=== PATIENT | female | born 1985 | race Caucasian/White ===

== ENCOUNTER 2017-09-16 21:02 | Emergency (ER) | payer BC, OTHER, SELFPAY ==
[2017-09-16] MEDS ORDERED: Metoclopramide HCl 10 MG/2 ML VIAL ONE (22:36)
== END 2017-09-16 23:54 | disposition home or self-care (01) ==
LOC: ERS 21:02
DX: R51 Headache (principal); R19.7 Diarrhea, unspecified; R11.0 Nausea; G40.909 Epilepsy, unspecified, not intractable, without status epilepticus
CPT/HCPCS: 96361; 96374; J2765

== ENCOUNTER 2018-07-26 10:18 | Emergency (ER) | payer BC, OTHER ==
[2018-07-26 11:14] LABS: Hemoglobin 12.4 g/dL (12.0-16.0); Mean Corpuscular HGB CONC 33.8 g/dL (32.0-36.0); Mean Corpuscular Volume 88.7 fL (78.0-98.0); Mean Platelet Volume 8.3 fL (7.4-10.4); Platelet Count 192 thou/uL (130-400); RBC Distribution Width 12.8 % (11.5-14.5); Red Blood Cell (RBC) Count 4.12 mill/uL (4.20-5.40); White Blood Cell (WBC) Count 5.7 thou/uL (4.8-10.8)
[2018-07-26 11:15] LABS: Bilirubin Negative (Negative); Blood, Urine Moderate (Negative); Clarity CLOUDY (Clear); Glucose, Urine (Dipstick) Negative (Negative); Leukocyte Negative (Negative); Nitrite Negative (Negative); Protein, Urine (Dipstick) Negative (Neg-Trace); Specific Gravity, Urine 1.026 (1.002-1.036); Urobilinogen 0.2 mg/dL (0.2-1.0)
[2018-07-26 11:16] LABS: Bacteria/HPF Rare-Few HPF (None Seen)
[2018-07-26 11:18] LABS: Pathc Cast-AUWi Flag 4.35 (0-2.49)
[2018-07-26 11:29] LABS: Hyaline Casts/LPF 0-3 HYALINE CAST LPF (0-3 Hyaline); Other Casts/LPF None Seen LPF (0-3 Hyaline)
[2018-07-26 11:34] LABS: Band 3 % (5-11); Lymphocytes 4 % (21-51); MDiff Complete? YES; Monocytes 2 % (0-10); Neutrophil 89 % (42-75); Platelet Morphology Comment Appears Adequate; Reactive Lymphocytes 2 % (0-10)
[2018-07-26 11:35] LABS: ALT (SGPT) 10 U/L (8-55); AST (SGOT) 15 U/L (5-34); Albumin 3.4 g/dL (3.5-5.0); Alkaline Phosphatase 55 U/L (40-150); Anion Gap 11 mmol/L (10-20); BUN (Urea Nitrogen) 10 mg/dL (7.0-18.7); Bilirubin, Total 0.5 mg/dL (0.2-1.2); Calc. Creatinine Clearance 0 mL/min (70-130); Calcium 8.8 mg/dL (7.8-10.44); Carbon Dioxide 23 mmol/L (22-29); Chloride 103 mmol/L (98-107); Estimated GFR-MDRD Greater than 90; Globulin 2.9 g/dL (2.4-3.5); Glucose 87 mg/dL (70-105); Lipase 14 U/L (8-78); Potassium 4.1 mmol/L (3.5-5.1); Protein, Total 6.3 g/dL (6.0-8.3); Sodium 133 mmol/L (136-145)
--- NOTE | 2018-07-26 12:12 | ULT ---
LIMITED OB ULTRASOUND: HISTORY: Abdominal pain. FINDINGS: A single live intrauterine gestation is seen with measurements corresponding to an estimated gestatio nal age of 20 weeks 3 days and MARTINEZ at 12/10/2018. The estimated weight measures 369 gm or 13 o unces. measurements are as follows: BPD 4.60 cm, 19 weeks 6 days HC 17.54 cm, 20 weeks 0 days AC 14.43 cm, 20 weeks 4 days FL 3.47 cm, 21 weeks 0 days The heart rate measures 163 b.p.m. The SUNSHINE measures 11.2 cm. Placenta is posteriorly located without evidence of placenta previa. IMPRESSION: Single live intrauterine of 20 weeks 3 days estimated gestational age and estimated date of delivery at 12/10/2018. POS: JUAN
== END 2018-07-26 13:11 | disposition home or self-care (01) ==
LOC: ERS 10:18
DX: O99.89 Other specified diseases and conditions complicating pregnancy, childbirth and the puerperium (principal); R10.9 Unspecified abdominal pain; Z3A.19 19 weeks gestation of pregnancy
CPT/HCPCS: 36415; 76815; 80053; 81003; 81015; 83690; 84702; 85025; 87086; 96372; J0500

== ENCOUNTER 2018-12-09 05:25 | Inpatient (IN) | payer OTHER ==
[2018-12-09] MEDS ORDERED: Promethazine HCl 25 MG/ML VIAL IM PRN ×3 (05:44→12:05)
[2018-12-09] MEDS ORDERED: hydrALAZINE 20 MG/ML VIAL SLOW IVP PRN ×2 (05:44→12:05)
[2018-12-09] MEDS ORDERED: Bicitra 30 ML UDCUP PO SCH (05:44)
[2018-12-09] MEDS ORDERED: CEFAZOLIN 2 GM in Premix Bag 1 BAG IVPB SCH (05:44)
[2018-12-09] MEDS ORDERED: Ondansetron PF 4 MG/2 ML Vial IVP PRN ×3 (05:44→12:05)
[2018-12-09 06:00] VITALS: BMI 28.3
[2018-12-09 06:19] LABS: Hemoglobin 10.6 g/dL (12.0-16.0); Mean Corpuscular HGB CONC 34.5 g/dL (32.0-36.0); Mean Corpuscular Hemoglobin 28.6 pg (27.0-31.0); Mean Corpuscular Volume 82.8 fL (78.0-98.0); Mean Platelet Volume 8.8 fL (7.4-10.4); Platelet Count 191 thou/uL (130-400); RBC Distribution Width 14.6 % (11.5-14.5); Red Blood Cell (RBC) Count 3.72 mill/uL (4.20-5.40); White Blood Cell (WBC) Count 6.2 thou/uL (4.8-10.8)
--- NOTE | 2018-12-09 06:50 | PDOC.FPROB ---
FMR OB H&P: HPI - History of Present Illness Chief Complaint: scheduled rLTCS Indentification: 33 y/o @ 39.2 WGA by LMP/8.1 wk sono History of Present Illness: Patient presents for a scheduled repeat section. She denies any complaints this AM. Reports few ronald fu ctx, no vaginal bleeding, vaginal d/c, LOF. Endorses movement. Primary Care Physician: Dr. Ford - [facility] FMR OB H&P: Current - Care : 2 Para: 1001 Gestational age: 39w2d Due date: 12/14/18 Dating Criteria: LMP/8.1 wk sono - OB Labs Blood type: O RH: positive Antibody Screen: negative HIV: negative RPR: negative HepBsAg: negative Rubella: immune Quad screen: negative Gonorrhea: negative Chlamydia: negative 1 hour gtt: 109 A1c: 4.9 GBS: negative - Anatomy Survey Anatomy survey: Normal - Additional Ultrasound Additional: Growth US 79.5% @ 36.1 WGA FMR OB H&P: History - Past Medical History PMH: Epilepsy, last seizure > 20 yrs ago Celiac disease Migraines MDD - OB History OB History: 07/01/16: LTCS 2/2 failed IOL 2/2 CPD. Male - 9lb 3oz. 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 Denies any h/o abnormal paps or STI's - Surgical History Sx History: LTCS - 07/01/16 at [facility] - Social History Social History: with 1 child. Denies tobacco, EtOH, or drug use - Family History Family History: Denies FMR OB H&P: Medications - Current Home Medications: Medication Instructions Recorded Confirmed Type No122/Iron/Folic Acid 1 each PO DAILY 12/09/18 12/11/18 History [ Multi Tablet] Docusate Calcium [Surfak] 240 mg PO BID #60 cap 12/11/18 Rx Ferrous Sulfate [Feosol] 325 mg PO QAM-WM #30 tab 12/11/18 Rx Ibuprofen [Motrin] 800 mg PO Q8HR #60 tab 12/11/18 Rx Allergies/Adverse Reactions: Allergies Allergy/AdvReac Type Severity Reaction Status Date / Time gluten Allergy Mild Diarrhea Verified 12/09/18 05:55 FMR OB H&P: ROS - Review of Systems General: denies: fever/chills, weight/appetite/sleep changes Eyes: denies: vision changes, double vision, scotomas ENT: denies: nasal congestion, sore throat Cardiovascular: denies: chest pain, edema Respiratory: denies: cough, shortness of breath Gastrointestinal: denies: abdominal pain, nausea, vomiting Genitourinary (Female): denies: dysuria, hematuria Musculoskeletal: denies: pain, tenderness Neurologic: denies: numbness, seizures, weakness Integumentary: denies: itching, rash Breast: denies: lumps, bumps Hematologic/Lymphatic: denies: prolonged or excessive bleeding, enlarged lymph nodes FMR OB H&P: Vital Signs - Maternal Vital signs: BP 98/58, HR 81, RR 16, Temp 98.4, O2 sat 98% on RA - Heart Tones Baseline: 135 Variability: moderate Acceleration: absent Deceleration: absent Category: category 1 [place] contractions every: none FMR OB H&P: Physical Exam - Physical Exam General: NAD, awake, alert and oriented HEENT: MMM, conjunctiva clear, grossly normal vision, grossly normal hearing Neck: supple, no LAD Heart: RRR, normal S1/S2, no murmurs/rubs/gallops, pulses present, no edema General: CTAB, no respiratory distress, good air movement, no rales/rhonchi, no wheezing Abdomen: soft, gravid, non-tender Musculoskeletal: normal gait and station, pulses present Skin: good tugor, capillary refill <2 seconds Lymphatic: no unusual bruising or bleeding, no purpura Psychiatric: intact recent and remote memory, good judgement and insight - Pelvic Exam Presentation: cephalic on bedside sono with post placenta FMR OB H&P: Results - Labs Lab results: Laboratory Results - last 24 hr 12/09/18 06:06 WBC 6.2 RBC 3.72 L Hgb 10.6 L Hct 30.8 L MCV 82.8 MCH 28.6 MCHC 34.5 RDW 14.6 H Plt Count 191 MPV 8.8 FMR OB H&P: A/P - Problem List (1) H/O section Current Visit: Yes Status: Acute Code(s): Z98.891 - HISTORY OF UTERINE SCAR FROM PREVIOUS SURGERY Assessment and Plan: Plan for repeat -Admit to L&D -LR @ 125 -Ancef 2g -Consult anesthesia -NPO (2) Term Current Visit: No Status: Acute Code(s): Z34.80 - ENCOUNTER FOR SUPRVSN OF NORMAL , UNSP TRIMESTER Assessment and Plan: Plan as above (3) Celiac disease Current Visit: No Status: Chronic Code(s): K90.0 - CELIAC DISEASE Assessment and Plan: Stable (4) Epilepsy complicating in third trimester Current Visit: No Status: Chronic Code(s): O99.353 - DISEASES OF THE NERVOUS SYS COMP , THIRD TRIMESTER; G40.909 - EPILEPSY, UNSP, NOT INTRACTABLE, WITHOUT STATUS EPILEPTICUS Assessment and Plan: Seizure free for several years, off meds at this time Disposition: Admit to L&D Discussion: Date/Time: 12/09/18 0648 This H&P was discussed with Dr. Ford who agrees with the above documentation and plan. Signature: Daylin Marsh MD, PGY-3 Addendum - Attending - Attending Attestation Date/Time: 12/09/18 0785 I personally evaluated the patient and discussed the management with Dr. Marsh I agree with the History, Examination, Assessment and Plan documented above with any addition or exceptions noted below. 33 yo female at 39.2 wks here for scheduled repeat LTCS per maternal request. R/B/A discussed. Patient did not wish to have TOLAC due to severity and complications of last labor process. Currently no other complications this . Patient does have a history of celiac dz and childhood seizures with last seizure over 20 years ago. Patient has been off medication for several years. Celiac dz well controlled with diet. Anemia currently related to . Will proceed to OR when available. Fetus cephalic. Gloria
[2018-12-09 06:57] LABS: HBSAg Index 0.21 S/CO (0-0.99); Hep B Surf Ag Non-Reactive S/CO (NonReactive); Syphilis Antibody Nonreactive (Nonreactive); Syphilis Antibody Index 0.05 S/CO (<1.00 Non-Reactive)
[2018-12-09] MEDS ORDERED: Oxytocin 10 UNITS/ML VIAL ONE ×2 (07:07→07:09)
[2018-12-09] MEDS ORDERED: ePHEDrine/0.9% NaCl/PF SYRINGE 50 mg/10 ml ONE (07:07)
[2018-12-09] MEDS ORDERED: Ondansetron PF 4 MG/2 ML Vial ONE ×2 (07:07→12:00)
[2018-12-09] MEDS ORDERED: MORPHINE 5 MG/10 ML PF VIAL ONE (07:09)
[2018-12-09] MEDS: Lactated Ringer's 1,000 ML IV SCH ×4 (07:14→15:47)
[2018-12-09] MEDS ORDERED: PHENYLEPHRINE-NS 100 MCG/ML 10 ML SYRINGE ONE ×2 (07:43→12:00)
[2018-12-09] MEDS ORDERED: NS / Oxytocin 40 units/1000ml 0 ML ONE (08:01)
[2018-12-09] MEDS ORDERED: Ketorolac Tromethamine 30 MG/ML VIAL ONE ×2 (08:19→12:00)
--- NOTE | 2018-12-09 08:58 | PDOC.OPDEL ---
OB Operative/Delivery Note Delivery Dr/Surgeon: Dr. Marsh and Dr. Gutierrez with Dr. Ford attending Pre-Delivery Diagnosis: scheduled section Procedure/Post Delivery Dx: repeat low transverse CS Weeks gestation: 39 (39w2d) Anesthesia: spinal - Findings A Sex: female - Additional Findings/Plan Placenta delivered: spontaneous findings: low transverse hysterotomy without extension Estimated blood loss: 750 mL Compilations/Other Findings: Preoperative Diagnosis: 1) Curry, Term intrauterine 2) Previous x1 3) Celiac disease 4) Childhood seizure disorder, resolved 5) hx of adjustment disorder with depressed and anxious mood 6) Anemia of Postoperative Diagnosis: Same Anesthesia: spinal Indications: The patient is a 33 year old female at 39.2 weeks gestation (by LMP/8.1 wk sono) who presents for a repeat scheduled . Procedure in Detail: After risks, benefits, and alternatives were explained to the patient, she gave informed consent. Pre-operative antibiotics included Cefazolin 2 gram IV. The patient was taken to the operating room and spinal anesthesia was initiated. She was placed in the supine position with a left tilt and prepped and draped in usual sterile fashion. A Pfannenstiel incision was made with a scalpel and carried down to the level of the fascia which was sharply nicked. The fascial cut was extended bilaterally with Sanchez scissors. The inferior and superior edges of the cut fascial edges were elevated with Daphne clamps and the underlying rectus muscles were sharply and bluntly dissected free. The recti were divided digitally and retracted manually. The peritoneum was entered bluntly and retracted manually. Mustapha O retractor was placed. Bladder flap was created with Metzenbaum scissors due to the high scarring displacement of the bladder. A low transverse score was made with the scalpel and the uterus was entered in the midline bluntly. Clear fluid was seen. The hysterotomy was extended manually in a cephalocaudal fashion. The infant was noted to be vertex and was easily delivered by fundal pressure. Mouth and nares were bulb suctioned. Cord clamped and cut and grossly normal female infant was handed to waiting nurse. Cord blood was obtained. Placenta was manually extracted, found to be intact with 3 vessel cord and discarded. The endometrium was curetted with a dry lap. The uterus was closed with a running locking #1 Monocryl followed by a running non-locking #1 Monocryl imbricating suture. Following this hemostasis was noted. The abdomen was inspected and suctioned free of clots. The Mustapha O retractor was removed and the hysterotomy was again noted to be hemostatic. The peritoneum was closed with running, non-locking 2-0 vicryl suture. The fascia was closed with a running non-locking 0-PDS suture. The subcutaneous tissue was irrigated and the bleeders were cauterized with the bovie. The subcutaneous layer was approximated with interrupted 4-0 PlainGut sutures. The skin was closed with running subcuticular 4-0 monocryl suture and a pressure dressing was placed. All counts were correct. The patient tolerated the procedure well and was taken to the recovery room in stable condition. Delivery Time: 0758 on 12/09/18 Estimated Blood Loss: 750 ml, Quantitative Blood loss: 425mL Complications: None Specimens: Cord blood sent to lab for blood type Findings: Grossly normal female infant went to nursery in good condition. Grossly normal placenta with 3 vessel cord discarded. Drains: Moran to gravity draining clear urine Attending Note: I was present and participated in the above documented procedure. RLTCS was uncomplicated. Hysterotomy was closed in 2 layers. Hemostasis was noted at the end of the case. Count was correct x 3. Female fetus delivered in OP positioning. APGARs 8/9. Weighing 7 lbs 8 oz. Placenta was intact with 3VC. Discarded. IVF = 1600 mL of LR UOP = 800 mL, clear Dispo: Routine recovery ABrayMD Post delivery plan: routine recovery
[2018-12-09] MEDS ORDERED: Naloxone HCl 0.4 mg/ml Vial IV PRN (09:10)
[2018-12-09] MEDS ORDERED: Naloxone HCl 0.4 mg/ml Vial IVP PRN ×2 (09:10)
[2018-12-09] MEDS ORDERED: Ondansetron HCl/PF 4 MG/2 ML Vial IVP PRN (09:10)
[2018-12-09] MEDS ORDERED: Promethazine HCl 25 MG SUPP PR PRN (09:10)
[2018-12-09] MEDS ORDERED: diphenhydrAMINE 50 MG/ML VIAL IVP PRN (09:10)
[2018-12-09] MEDS ORDERED: Meperidine HCl/PF 25 MG/ML VIAL SLOW IVP PRN (09:10)
[2018-12-09] MEDS ORDERED: L&D-Morphine 4 MG/ML VIAL SLOW IVP PRN (09:10)
[2018-12-09] MEDS ORDERED: Ketorolac Tromethamine 30 MG/ML VIAL IVP PRN ×2 (09:10→12:05)
[2018-12-09] MEDS ORDERED: HYDROmorphone 2 MG/ML VIAL SLOW IVP PRN (09:10)
[2018-12-09] MEDS ORDERED: Communication Order-Pharmacy FS SCH (09:15)
[2018-12-09] MEDS ORDERED: Ketorolac Tromethamine 30 MG/ML VIAL IVP SCH (09:15)
[2018-12-09] MEDS ORDERED: Promethazine HCl 25 MG/ML VIAL ONE (10:38)
[2018-12-09] MEDS ORDERED: ePHEDrine 50 MG/ML VIAL ONE (12:00)
[2018-12-09] MEDS ORDERED: Zolpidem Tartrate 5 MG TAB PO PRN (12:05)
[2018-12-09] MEDS ORDERED: Bisacodyl 10 MG SUPP PR PRN (12:05)
[2018-12-09] MEDS ORDERED: diphenhydrAMINE 25 MG CAP PO PRN (12:05)
[2018-12-09] MEDS ORDERED: Acetaminophen 325 MG TAB PO PRN (12:05)
[2018-12-09] MEDS ORDERED: Simethicone Chewable 80 MG TAB PO PRN (12:05)
[2018-12-09] MEDS ORDERED: Methylergonovine 0.2 MG/ML VIAL IM PRN (12:05)
[2018-12-09] MEDS ORDERED: Misoprostol 200 MCG TAB PR PRN (12:05)
[2018-12-09] MEDS ORDERED: HYDROcodone/Acetaminophen 5/325 mg Tablet PO PRN ×2 (12:05)
[2018-12-09] MEDS: Ibuprofen 800 MG TAB PO SCH ×2 (14:44→22:10)
--- NOTE | 2018-12-09 18:29 | PDOC.EVN ---
Event Note - Event Note Event Note: 12/09/2018 at 14:00 PP progress note. Patient doing well. She states she is tired. Lochia minimal. She is and has no concerns. VS: BP 88/46, Pulse 74, RR 18, Temp 97.7F, O2 sat 100% on RA General: Alert and oriented HEENT: MMM Card: RRR Resp: CTA, no acute respiratory distress Ext: No edema Abdomen: Soft, non-tender. Uterus firm and at level of umbilicus A/P: Routine PP care: Meeting milestones. ADAT (gluten free). Continue . Encouraged ambulation when able. Abdominal binder available. Minimal lochia. Good urine output. s/p rLTCS: No complications. QBL 425 mL. Epilepsy: Seizure free for >20 years. Not on medications. Adjustment disorder vs MDD: Patient will need to be monitored closely for PP depression. No signs at this time. She was in good spirits and very excited about the of her baby girl. Continue to monitor closely. GERD: H2 radha as needed. Celiac disease: Avoid gluten. Diet modification noted in chart. Ayana Gutierrez, DO PGY-3 Attending Note: Agree with above. Continue to monitor lochia and pain control. Will have patient follow up closely outpt due to hx of mood disorder. Gloria
[2018-12-09] MEDS: Docusate Calcium (SURFAK) 240 MG CAP PO SCH (22:15)
[2018-12-09] MEDS: Lanolin Ointment 7 GM TUBE TOP PRN (22:30)
[2018-12-10] MEDS: Ibuprofen 800 MG TAB PO SCH ×3 (06:19→21:27)
[2018-12-10 06:44] LABS: Hemoglobin 8.2 g/dL (12.0-16.0); Mean Corpuscular HGB CONC 33.4 g/dL (32.0-36.0); Mean Corpuscular Hemoglobin 28.7 pg (27.0-31.0); Mean Corpuscular Volume 85.7 fL (78.0-98.0); Mean Platelet Volume 8.3 fL (7.4-10.4); Platelet Count 157 thou/uL (130-400); RBC Distribution Width 14.5 % (11.5-14.5); Red Blood Cell (RBC) Count 2.86 mill/uL (4.20-5.40); White Blood Cell (WBC) Count 9.3 thou/uL (4.8-10.8)
--- NOTE | 2018-12-10 07:40 | PDOC.OBPPN ---
FMR OB PN: Subj - Interval History Hospital Day: 2 Day: 1 33 y/o ->2 @ 39.2 WGA delivered via rLTCS @ 0758 on 12/09/18. Breast feeding without difficulty. Reports some abdominal discomfort that has been improved with toradol. She reports lochia less than a period. She has been out of bed to the bathroom. She endorses flatus. Denies LE swelling, palpitations, H/A. Reports N/V has resolved since the recovery room. FMR OB PN: Obj - Maternal Vital signs: BP: 94/47 HR: 80 RR: 16 Tmax: 98.9 Pox: 98% on RA Wt: 70kg - Urine output I&O: 12/09/18 12/10/18 12/11/18 06:59 06:59 06:59 Intake Total 900 Output Total 3075 Balance -2175 FMR OB PN: Exam - Physical Exam General: NAD, awake, alert and oriented HEENT: MMM, conjunctiva clear, grossly normal vision, grossly normal hearing Neck: supple, no LAD Heart: RRR, normal S1/S2, pulses present, no edema, other (4/6 systolic murmur) General: CTAB, no respiratory distress, good air movement, no wheezing Abdomen: soft, fundus(cm) (firm below umbilicus), bowel sound present Musculoskeletal: pulses present, FROM in all four extremities Neurological: no clonus, no focal deficit Skin: good tugor, capillary refill <2 seconds : bandage intact, incision healing well Lymphatic: no unusual bruising or bleeding, no purpura Psychiatric: intact recent and remote memory, good judgement and insight FMR OB PN: Data - Labs Lab results: Laboratory Results - last 24 hr 12/10/18 06:27 WBC 9.3 RBC 2.86 L Hgb 8.2 L Hct 24.5 L MCV 85.7 MCH 28.7 MCHC 33.4 RDW 14.5 Plt Count 157 MPV 8.3 FMR OB PN: A/P - Problem List (1) Status post Current Visit: No Status: Acute Code(s): Z98.891 - HISTORY OF UTERINE SCAR FROM PREVIOUS SURGERY Assessment and Plan: pt POD #1 s/p rLTCS -Encourage ambulation -Abdominal binder -Encourage breast feeding -Continue PNV -ADAT -Toradol for pain control overnight, will transition to PO pain control with ibuprofen and norco but keep toradol prn today. -Needs pap (2) Celiac disease Current Visit: No Status: Chronic Code(s): K90.0 - CELIAC DISEASE Assessment and Plan: Stable -Avoid gluten (3) Epilepsy complicating in third trimester Current Visit: No Status: Chronic Code(s): O99.353 - DISEASES OF THE NERVOUS SYS COMP , THIRD TRIMESTER; G40.909 - EPILEPSY, UNSP, NOT INTRACTABLE, WITHOUT STATUS EPILEPTICUS Assessment and Plan: Stable, no recent seizures, not on medications (4) Anemia Current Visit: Yes Status: Acute Code(s): D64.9 - ANEMIA, UNSPECIFIED Assessment and Plan: Hb down from 10.6 to 8.2 post op -Will start iron -Continue PNV -Pt asymptomatic at this time Disposition: Continue to monitor on Discussion: Date/Time: 12/10/18 0738 This H&P was discussed with Dr. Ford who agrees with the above documentation and plan. Signature: Daylin Marsh MD, PGY-3 Addendum - Attending - Attending Attestation Date/Time: 12/10/18 0800 I personally evaluated the patient and discussed the management with Dr. Marsh I agree with the History, Examination, Assessment and Plan documented above with any addition or exceptions noted below. 33 yo now female s/p uncomplicated RLTCS on 12/09/18 POD/PPD #1 Patient doing well. Pain controlled. Lochia minimal. Would like to breast fed. VS reviewed. Labs reviewed. NAD, AAO x4 RRR, II/ systolic flow murmur, nonradiating. CTA bilaterally, No w/c/r NT/ND, BS present. Fundus firm, below umbilicus. Bandage intact and clean. FROM, no c/c/e 1. s/p RLTCS: Doing well. Continue routine pp care. Bandage off today. Encouraged ambulation. 2. Blood loss anemia: Bill BL = 1070 mL. Continue oral iron supp. Patient is asymptomatic. 3. Celiac dz: Diet controlled. 4. hx of adjustment disorder vs PPD with hx of MDD: Mood stable and good. No depressive symptoms reported by patient. Has more assistance to help with this than last. [id number] present in room. Patient very self-aware. Will follow up closely pp. 5. Contraception: Family planning. Gloria
[2018-12-10] MEDS: Ferrous Sulfate 325 MG TAB PO SCH (10:26)
[2018-12-10] MEDS: Prenatal Vitamin 1 TAB PO SCH (10:26)
[2018-12-10] MEDS: Docusate Calcium (SURFAK) 240 MG CAP PO SCH ×2 (10:27→21:27)
[2018-12-10] MEDS: Lanolin Ointment 7 GM TUBE TOP PRN (21:27)
[2018-12-10] MEDS ORDERED: Sodium Chloride 0.9% 0 ML ONE (23:53)
[2018-12-11] MEDS: Ibuprofen 800 MG TAB PO SCH ×2 (05:40→15:57)
[2018-12-11 07:51] VITALS: BP 101/55; TEMP 98.2
--- NOTE | 2018-12-11 09:27 | PDOC.OBPPN ---
FMR OB PN: Subj - Interval History Hospital Day: 3 Day: 2 33 y/o ->2 @ 39.2 WGA delivered via rLTCS @ 0758 on 12/09/18. Breast feeding without difficulty. Reports abdominal pain controlled with ibuprofen. She reports lochia less than a period. She has been out of bed to the bathroom and walked around the room. She endorses flatus. Denies LE swelling, palpitations, H/A, N/V. FMR OB PN: Obj - Maternal Vital signs: BP: 101/55 HR: 94 RR: 16 Tmax: 98.2 Pox: 99% on RA Wt: 70kg - Urine output I&O: 12/10/18 12/11/18 12/12/18 06:59 06:59 06:59 Intake Total 900 650 Output Total 3075 Balance -2175 650 FMR OB PN: Exam - Physical Exam General: NAD, awake, alert and oriented HEENT: MMM, conjunctiva clear, grossly normal vision, grossly normal hearing Neck: no LAD Heart: RRR, normal S1/S2, no murmurs/rubs/gallops, pulses present, no edema General: CTAB, no respiratory distress, good air movement, no rales/rhonchi, no wheezing Abdomen: soft, fundus(cm) (firm 2cm below umbilicus), bowel sound present Musculoskeletal: pulses present, FROM in all four extremities Neurological: no clonus, no focal deficit Skin: good tugor, capillary refill <2 seconds : incision healing well, no erythema, no edema, no drainage, appropriately tender Lymphatic: no unusual bruising or bleeding, no purpura FMR OB PN: A/P - Problem List (1) Status post Current Visit: No Status: Acute Code(s): Z98.891 - HISTORY OF UTERINE SCAR FROM PREVIOUS SURGERY Assessment and Plan: pt POD #2 s/p rLTCS -Encourage ambulation -Abdominal binder -Encourage breast feeding -Continue PNV -Ibuprofen for pain control, has norco prn, but has not been using it -Needs pap (2) Celiac disease Current Visit: No Status: Chronic Code(s): K90.0 - CELIAC DISEASE Assessment and Plan: Stable, avoid gluten (3) Epilepsy complicating in third trimester Current Visit: No Status: Chronic Code(s): O99.353 - DISEASES OF THE NERVOUS SYS COMP , THIRD TRIMESTER; G40.909 - EPILEPSY, UNSP, NOT INTRACTABLE, WITHOUT STATUS EPILEPTICUS Assessment and Plan: Not on medications, no seizures in last several years (4) Anemia Current Visit: Yes Status: Acute Code(s): D64.9 - ANEMIA, UNSPECIFIED Assessment and Plan: Continue iron and PNV Disposition: d/c this PM Discussion: Date/Time: 12/11/18 0952 This H&P was discussed with Dr. Ford who agrees with the above documentation and plan. Signature: Daylin Marsh MD, PGY-3 Addendum - Attending - Attending Attestation Date/Time: 12/11/18 1240 I personally evaluated the patient and discussed the management with Dr. Marsh I agree with the History, Examination, Assessment and Plan documented above with any addition or exceptions noted below. 33 yo now female s/p uncomplicated RLTCS on 12/09/18 at 0758 POD/PPD #2 Remains well. Pain well controlled. Some trouble with breast feeding. not available yesterday. Suppose to stop by later today. Had to start supplementing with formula. BM x2. Voiding well. Pain controlled with NSAID. Incision doing well. VS reviewed. Labs reviewed. NAD, AAO x4 Fundus firm, below umbilicus. Incision clean, dry, no s/sx of infection. 1. s/p RLTCS: Doing well. Continue routine pp care. Doing well. 2. Blood loss anemia: Bill BL = 1070 mL. Continue oral iron supp. Remains asymptomatic. Minimal lochia. 3. Celiac dz: Diet controlled. 4. hx of adjustment disorder vs PPD with hx of MDD: Mood stable and good. No depressive symptoms reported by patient. Has more assistance to help with this than last. [id number] present in room. Patient very self-aware. Will follow up closely pp. 5. Contraception: Family planning. 6. Breast feeding: Reports increase this AM in milk production. Improved latch. to stop by today. Continue to supplement with formula. with 10% weight loss. No evidence of jaundice. Possible d/c this afternoon if feeding improved. Will follow up later today. Gloria
[2018-12-11] MEDS ORDERED: Sodium Chloride 0.9% 10 ML ONE (09:37)
[2018-12-11] MEDS: Prenatal Vitamin 1 TAB PO SCH (09:39)
[2018-12-11] MEDS: Ferrous Sulfate 325 MG TAB PO SCH (09:39)
[2018-12-11] MEDS: Docusate Calcium (SURFAK) 240 MG CAP PO SCH (09:39)
--- NOTE | 2018-12-14 08:08 | PQF ---
STEVIE NAQVI AMANDA MD [id number] [address] [place] [address] [id number] CLINICAL DOCUMENTATION CLARIFICATION FORM: POST DISCHARGE Addendum to original discharge summary date: ____ Late entry note date: __ DATE:12/14/2018 ATTN:LILIA RUSSO MD Please exercise your independent, professional judgment in responding to the clarification form. Clinical indicators are provided on the bottom of this form for your review Please check appropriate box(s): [ ] Acute blood loss anemia [ x ] Post-op anemia related to acute blood loss [ ] Anemia: [ ] Aplastic [ ] Nutritional [ ] Drug induced (specify) ___ [ ] Hemolytic [ ] Hereditary [ ] Acquired [ ] Autoimmune [ ] Non-autoimmune [ ] Enzyme disorder [ ] Chronic Anemia: [ ] Blood loss [ ] Hemolytic [ ] Simple [ ] Due to Vitamin B12 Deficiency [ ] Other [ ] Anemia of Chronic Disease (please specify) [x ] Other diagnosis Anemia of and Iron deficiency anemia [ ] Unable to determine For continuity of documentation, please document condition throughout progress notes and discharge summary. Thank You. CLINICAL INDICATORS - SIGNS / SYMPTOMS / LABS Repeat low transverse CS-Documented in OP note on 12/09 By Daylin Marsh Estimated blood loss:750 ml,Quantitative blood loss:425 ml-Documented in OP note on 12/09 By Daylin Marsh Anemia of -Documented in OP note on 12/09 By Daylin Marsh HGB-8.2,HCT-24.5-Documented in OB Progress note on 12/10By Daylin Marsh HB down from 10.6 to 8.2 post op-Documented in OB Progress note on 12/10Daylin Bartholomew Blood loss anemia:Bill BL-1070 ml.--Documented in OB Progress note on 12/10Daylin Bartholomew RISK FACTORS Repeat low transverse CS-Documented in OP note on 12/09 By Daylin Marsh HB down from 10.6 to 8.2 post op-Documented in OB Progress note on 12/10Daylin Bartholomew TREATMENT Continue oral iron supp-Documented in OB Progress note on Daylin Marsh SAP Supervisor [employer] Win[employer](This form is maintained as a part of the permanent medical record) 2014 [employer]. All Rights Reserved [email or web address] [not provided] MTDD
== END 2018-12-11 19:40 | disposition home or self-care (01) | DRG 787 ==
LOC: L&D 05:25 → 3SE 11:38
PROVIDERS: ADMIT Student in an Organized Health Care Education/Training Program; ATTEND Student in an Organized Health Care Education/Training Program
PROC: 10D00Z1 Extraction of Products of Conception, Low, Open Approach (ICD-10-PCS; principal; 2018-12-09)
DX: O34.211 Maternal care for low transverse scar from previous cesarean delivery (principal); D62 Acute posthemorrhagic anemia; Z3A.39 39 weeks gestation of pregnancy; Z37.0 Single live birth; G40.909 Epilepsy, unspecified, not intractable, without status epilepticus; G43.909 Migraine, unspecified, not intractable, without status migrainosus; K90.0 Celiac disease; O99.02 Anemia complicating childbirth; O99.344 Other mental disorders complicating childbirth; O99.62 Diseases of the digestive system complicating childbirth; K21.9 Gastro-esophageal reflux disease without esophagitis; O99.353 Diseases of the nervous system complicating pregnancy, third trimester; D50.0 Iron deficiency anemia secondary to blood loss (chronic)
CPT/HCPCS: 36415; 51702; 85027; 86780; 86850; 86900; 86901; 87340; J0690; J1200; J1885; J2274; J2405; J2550; J2590; J3490

== ENCOUNTER 2018-12-20 15:28 | Emergency (ER) | payer OTHER ==
[2018-12-20 15:53] LABS: #Lymphocytes 2.6 thou/uL (1.20-3.40); #Monocytes 0.4 thou/uL (0.11-0.59); #Neutrophils 3.2 thou/uL (1.40-6.50); %Basophils 0.6 % (0.0-1.0); %Eosinophils 0.4 % (0.0-10.0); %Lymphocytes 41.3 % (21.0-51.0); %Monocytes 5.7 % (0.0-10.0); %Neutrophils 52.2 % (42.0-75.0); Hemoglobin 12.5 g/dL (12.0-16.0); Mean Corpuscular Hemoglobin 27.7 pg (27.0-31.0); Mean Corpuscular Volume 86.6 fL (78.0-98.0); Mean Platelet Volume 7.6 fL (7.4-10.4); Platelet Count 400 thou/uL (130-400); RBC Distribution Width 14.5 % (11.5-14.5); White Blood Cell (WBC) Count 6.2 thou/uL (4.8-10.8)
[2018-12-20 15:53] LABS: Bacteria/HPF None Seen HPF (None Seen); Bilirubin Negative (Negative); Blood, Urine 2+ (Negative); Clarity Clear (Clear); Glucose, Urine (Dipstick) Normal (Negative); Leukocyte Negative Leu/uL (Negative); Nitrite Negative (Negative); Protein, Urine (Dipstick) Negative (Neg-Trace); Squamous Epithelial 0-3 HPF (0-3); Urobilinogen Normal mg/dL (Less than 2); WBC/HPF 0-3 HPF (0-3)
[2018-12-20 16:13] LABS: ALT (SGPT) 17 U/L (8-55); AST (SGOT) 16 U/L (5-34); Albumin 4.3 g/dL (3.5-5.0); Alkaline Phosphatase 111 U/L (40-110); Anion Gap 16 mmol/L (10-20); BUN (Urea Nitrogen) 16 mg/dL (7.0-18.7); Bilirubin, Total 0.3 mg/dL (0.2-1.2); Calc. Creatinine Clearance 0 mL/min (70-130); Calcium 9.6 mg/dL (7.8-10.44); Carbon Dioxide 24 mmol/L (22-29); Chloride 104 mmol/L (98-107); Estimated GFR-MDRD Greater than 90; Globulin 3.2 g/dL (2.4-3.5); Glucose 75 mg/dL (70-105); Potassium 4.1 mmol/L (3.5-5.1); Protein, Total 7.5 g/dL (6.0-8.3); Sodium 140 mmol/L (136-145)
[2018-12-20 16:28] LABS: INR-International Normal Ratio 0.9; PTT 28.4 SEC (22.9-36.1); Prothrombin Time 12.2 SEC (12.0-14.7)
[2018-12-20] MEDS ORDERED: Iopamidol-370 76% 500 ML 1 ML ONE (16:55)
--- NOTE | 2018-12-20 17:56 | CT ---
CT ABDOMEN AND PELVIS WITH IV CONTRAST 12/20/2018 CLINICAL INFORMATION: Abdominal pain and heavy bleeding post on December 09. Severe pain with urination. COMPARISON: None. Technique: Multiple contiguous axial CT images are obtained through the abdomen and pelvis with IV contrast. Cor onal reformatted images are provided. FINDINGS: Lower Chest: Lung bases are clear. Vessels: Abdominal aorta is normal in caliber. Abdomen: Portal vein:Patent Gallbladder: Within normal limits for CT imaging. Liver: A subcentimeter too small to characterize hypodense lesion is seen in the medial aspect right hepatic lobe. Liver otherwise has a normal CT appearance. Spleen: A 2 cm slightly enhancing lesion is seen in the anterior body of the spleen which is nonspeci fic but may represent a small hemangioma. Pancreas: within normal limits. Adrenals: within normal limits. Kidneys: within normal limits. Bowel: Normal caliber. Appendix: The appendix is visualized and normal in caliber. Peritoneum: No ascites or free air; no fluid collection. Mesentery and Retroperitoneum: No enlarged mesenteric or retroperitoneal lymph nodes. Abdominal Wall: There is mild stranding seen within the lower anterior pelvis likely due to patient's history of recent . Pelvis: Reproductive Organs: The uterus is enlarged related to state of the uterus. There is fluid and heterogeneity seen within the endometrial canal which may be related to hemorrhage given patient's history of vaginal bleeding. Retained products of conception cannot be excluded based on th is examination. Endometritis would also be difficult to entirely exclude. Pelvis within normal limits. Bladder: Partially distended and normal in appearance. Bones: within normal limits. IMPRESSION: 1. Enlargement uterus likely due to recent state. There is fluid and increased density see n within the endometrial canal which is probably related to hemorrhage given patient's clinical history of vaginal bleeding. Retained products of conception or endometritis cannot be excluded based on this exam. 2. Enhancing lesion body of the spleen with central area of lower density. This is nonspecific but li min attributable to a hemangioma. 3. Too small to characterize hypodense lesion right hepatic lobe.
--- NOTE | 2018-12-20 20:43 | ULT ---
ULTRASOUND PELVIC DOPPLER DUPLEX: DATE: 12/20/2018 HISTORY: 33-year-old female with pelvic pain and heavy vaginal bleeding. Status post section 12/10/19. TECHNIQUE: Transabdominal transducer used to visualize intrapelvic contents with grayscale, color-flow, and spec tral analysis. FINDINGS: Uterus is enlarged consistent with recent status, measuring 14 x 6 x 8 cm. The endometrial cavity is filled with fluid, and is moderately dilated, from the fundus to the lower uterine segment. Some of the fluid is anechoic fluid. There is other material that is heterogeneously hypoechoic solid-appearing, with lobulated hypoechoic components filling significant portion of the endometrial cavity. This probably represents blood clots. However, retained products of conception cannot be ruled out. There are no osseous structures within this. Bilateral ovaries are within normal limits in size and have blood flow by Doppler. No ovarian cyst. No free fluid in cul-de-sac. IMPRESSION: Recently uterus with endometrial cavity expanded and filled with fluid plus heterogeneous solid appearing material which could represent large blood clots and/or retained products of conception.
[2018-12-23 00:40] LABS: Chlamydia by PCR Not Detected (NotDetected); GC by PCR Not Detected (NotDetected)
== END 2018-12-20 21:22 | disposition home or self-care (01) ==
LOC: ERS 15:28
DX: N93.9 Abnormal uterine and vaginal bleeding, unspecified (principal); R30.0 Dysuria; G40.909 Epilepsy, unspecified, not intractable, without status epilepticus; Z79.1 Long term (current) use of non-steroidal anti-inflammatories (NSAID); Z79.899 Other long term (current) drug therapy
CPT/HCPCS: 36415; 74177; 76856; 80053; 81003; 81015; 85025; 85610; 85730; 86850; 86900; 86901; 87491; 87591; 96360; 96361; Q9967